=== PATIENT | female | born 1970 | race Caucasian/White ===

== ENCOUNTER 2019-12-13 20:36 | Emergency (ER) | payer OTHER, MEDICAID, SELFPAY ==
[2019-12-13] VITALS (8 sets, daily range): BP systolic 130–149; BP diastolic 91–92; PULSE 92–134; RESP 18–24; O2SAT 94–98
--- NOTE | 2019-12-13 21:18 | ED_ITS ---
HPI - General Adult General Chief complaint: Toxicology Problem Stated complaint: detoxing off benzo's Time Seen by Provider: 12/13/19 20:50 Source: patient Mode of arrival: Ambulatory Limitations: no limitations History of Present Illness HPI narrative: 48-year-old female here for evaluation and ?medical clearance? 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 Patient has had issues with drug and alcohol abuse in the past. Has been in alcoholics anonymous in the past. States was doing well until early this year when the COVID-19 situation caused the alcoholics anonymous groups to shut down. She states that she then started drinking alcohol. She was then prescribed Ativan by her primary provider. She states that it was a prescription for 60 1 mg Ativan pills with refills. She states she went through 60 of these pills in approximately 2 weeks. She then refill and the medicine and again took them rather quickly. She has been taking them with alcohol. Her last drink was earlier today. Her last Ativan tablet was also earlier today. She has never had alcohol withdrawal seizures. She denies any other drug use. Related Data Allergies Allergy/AdvReac Type Severity Reaction Status Date / Time Penicillins Allergy Verified 12/13/19 20:47 Sulfa (Sulfonamide Allergy Verified 12/13/19 20:47 Antibiotics) Review of Systems Constitutional Constitutional: Denies fever(s) and Denies headache(s) ENT Ears, Nose, Mouth, and Throat: Denies headache(s) Cardiovascular Cardiovascular: Denies chest pain and Denies dyspnea Respiratory Respiratory: Denies dyspnea Gastrointestinal Gastrointestinal: Denies abdominal pain, Denies nausea and Denies vomiting Musculoskeletal Musculoskeletal: Denies arthralgias and Denies myalgias Integumentary/Breasts Skin/Breast: Denies rash Neurologic Neurologic: Denies behavioral changes and Denies headache(s) Psychiatric Psychiatric: Reports anxiety and Denies behavioral changes Hematologic/Lymphatic Hematologic/Lymphatic: Denies easy bleeding and Denies easy bruising Allergic/Immunologic Allergic/Immunologic: Denies urticaria Patient History Medical History Alcohol abuse (Acute) Anxiety (Acute) Drug abuse (Acute) alcohol intake frequency: 3 or more drinks per day Substance Use Type: prescription drug Exam Initial Vital Signs Initial Vital Signs: Vital Signs Pulse Rate 134 H 12/13/19 20:42 Respiratory Rate 24 12/13/19 20:42 Blood Pressure 149/92 H 12/13/19 20:42 Pulse Oximetry 96 12/13/19 20:42 Const General: cooperative and comfortable Limitations: mental status not altered HENMT Head: normal to inspection and normocephalic Resp Effort & Inspection: normal respiratory effort Auscultation: clear to auscultation bilaterally Cardio Rate: tachycardic Rhythm: regular rhythm Pulses: radial pulses present GI Inspection: non-distended Palpation: soft Skin Lesions: no lesions Rashes: no rashes Neuro General: patient alert, patient awake and patient oriented x3 Cognition: normal cognition Speech: speech normal Extrem General: normal to inspection and capillary refill normal Psych Appearance: grossly normal and well kempt Speech and Movement: speech and movement normal Mood: congruent mood Affect: normal affect Attitude: cooperative Scores GCS Lampe coma scale eye opening: Spontaneous Ella coma scale verbal response: Orientated Lampe coma scale motor response: Obey commands Lampe coma scale total score: 15 Course Orders Ordered: ED Orders 12/13/19 20:54 Test Urine Stat Urinalysis and Microscopic Stat Urine Drug Screen, Rapid Stat 12/13/19 20:55 EKG-12 Lead Stat 12/13/19 21:00 Acetaminophen Stat Complete Blood Count AUTO DIFF Stat Comprehensive Metabolic Panel Stat Ethanol (ETOH) Stat Free T4, Direct Thyroxine Stat Lipase Stat Salicylate Stat Thyroid Stimulating Hormone Stat 12/13/19 21:30 COVID19 -ED/INPAT/OR/L&D Stat 12/14/19 00:35 [place] [facility] [place] Stat Sodium Chloride (Normal Saline 0.9%) 1,000 mls @ 1,000 mls/hr IV BOLUS ONE Stop: 12/14/19 03:38 Last Admin: 12/14/19 02:44 Dose: 1,000 mls/hr Documented by: SAMINA Vital Signs Vital signs: Vital Signs - 8 hr 12/13/19 20:42 12/13/19 22:00 12/13/19 22:01 Pulse Rate 134 H 113 H 104 H Respiratory Rate 24 18 Blood Pressure 149/92 H 131/91 H Pulse Oximetry 96 97 94 12/13/19 22:53 12/13/19 22:54 12/13/19 23:00 Pulse Rate 92 H 96 H 103 H Respiratory Rate Blood Pressure 142/92 H Pulse Oximetry 98 98 98 12/13/19 23:05 12/13/19 23:30 Pulse Rate 92 H 96 H Respiratory Rate 19 20 Blood Pressure 142/91 H 130/91 H Pulse Oximetry 98 97 Medical Decision Making Medical Records Medical records reviewed: Yes I reviewed the patient's medical records. Lab Data Lab results reviewed: Yes I reviewed the patient's lab results. Result diagrams: 12/13/19 21:00 12/13/19 21:00 Labs: Lab Results 12/13/19 12/13/19 12/13/19 Range/Units 20:54 20:54 20:54 WBC (4.5-11.0) X10^3/uL RBC (4.0-5.2) X10^6/uL Hgb (12.0-16.0) g/dL Hct (36-46) % MCV (80-100) fL MCH (26-34) PG MCHC (30-36) % RDW (11.6-14.8) % Plt Count (150-400) X10^3/uL Neut % (Auto) (50-75) % Lymph % (Auto) (25-40) % [place] % (Auto) (3-14) % Eos % (Auto) (2-4) % Baso % (Auto) (0-2) % Neut # (Auto) (3419-1853) /uL Lymph # (Auto) (8318-6753) /uL Richmond # (Auto) (0-900) /uL Eos # (Auto) (0-450) /uL Baso # (Auto) (0-100) /uL Sodium (137-145) mmol/L Potassium (3.4-5.1) mmol/L Chloride (98-107) mmol/L Carbon Dioxide (22-32) mmol/L BUN (7-17) mg/dL Creatinine (0.52-1.04) mg/dL Estimated GFR (>60) mL/min BUN/Creatinine Ratio (6-22) Glucose (70-100) mg/dL Calcium (8.4-10.2) mg/dL Total Bilirubin (0.2-1.3) mg/dL AST (14-36) IU/L ALT (<35) IU/L Alkaline Phosphatase (38-126) U/L Total Protein (6.3-8.2) g/dL Albumin (3.5-5.0) g/dL Globulin (1.7-4.1) g/dL Albumin/Globulin Ratio (1.0-2.8) Lipase (23-300) U/L TSH (0.47-4.68) uIU/mL Free T4 (0.78-2.19) ng/dL Urine Color Yellow Urine Appearance Clear Urine pH 7.0 (4.5-8.0) Ur Specific Aldrich <=1.005 (1.000-1.035) Urine Protein Negative (Negative) Urine Glucose (UA) Negative (Negative) g/dL Urine Ketones Negative (NEGATIVE) Urine Occult Blood 3+ H (Negative) Urine Nitrate Negative (Negative) Urine Bilirubin Negative (NEGATIVE) Urine Urobilinogen 0.2 (0.2) E.U./dL Ur Leukocyte Esterase Negative (NEGATIVE) Urine RBC None seen (0-5/HPF) Urine WBC None seen (0-5/HPF) Ur Squamous Epith Cells 1-5 /hpf (0-5/HPF) Urine Bacteria Occasional (0-1) (None) Ur Culture Indicated? Cult not indicated Urine Test Negative (Negative) Salicylates (<20) mg/dL U Opiates 300ng/mL cut Negative (Negative) Ur Oxycodone Screen Negative (Negative) Urine Methadone Screen Negative (Negative) Acetaminophen (10-30) ug/mL Ur Barbiturates Screen Negative (Negative) U Tricyclic Antidepress Negative (Negative) Ur Phencyclidine Scrn Negative (Negative) Ur Amphetamines Screen Negative (Negative) U Methamphetamines Scrn Positive H (Negative) Ur MDMA Scrn (Ecstasy) Negative (Negative) U Benzodiazepines Scrn Negative (Negative) Urine Cocaine Screen Negative (Negative) U Marijuana (THC) Screen Positive H (Negative) Ethyl Alcohol ( - 10) mg/dL COVID-19 PCR (Negative) 12/13/19 12/13/19 12/13/19 Range/Units 21:00 21:00 21:00 WBC 6.7 (4.5-11.0) X10^3/uL RBC 4.33 (4.0-5.2) X10^6/uL Hgb 12.7 (12.0-16.0) g/dL Hct 38.2 (36-46) % MCV 88.2 (80-100) fL MCH 29.3 (26-34) PG MCHC 33.3 (30-36) % RDW 14.6 (11.6-14.8) % Plt Count 320 (150-400) X10^3/uL Neut % (Auto) 70.3 (50-75) % Lymph % (Auto) 19.4 L (25-40) % Richmond % (Auto) 8.4 (3-14) % Eos % (Auto) 1.1 L (2-4) % Baso % (Auto) 0.8 (0-2) % Neut # (Auto) 4700 (6656-8987) /uL Lymph # (Auto) 1300 (5700-4679) /uL Richmond # (Auto) 600 (0-900) /uL Eos # (Auto) 100 (0-450) /uL Baso # (Auto) 100 (0-100) /uL Sodium 138 (137-145) mmol/L Potassium 3.6 (3.4-5.1) mmol/L Chloride 106 (98-107) mmol/L Carbon Dioxide 23 (22-32) mmol/L BUN 17 (7-17) mg/dL Creatinine 0.82 (0.52-1.04) mg/dL Estimated GFR > 60.0 (>60) mL/min BUN/Creatinine Ratio 20.7 (6-22) Glucose 108 H (70-100) mg/dL Calcium 9.3 (8.4-10.2) mg/dL Total Bilirubin 0.5 (0.2-1.3) mg/dL AST 33 (14-36) IU/L ALT 23 (<35) IU/L Alkaline Phosphatase 54 (38-126) U/L Total Protein 7.0 (6.3-8.2) g/dL Albumin 4.3 (3.5-5.0) g/dL Globulin 2.7 (1.7-4.1) g/dL Albumin/Globulin Ratio 1.6 (1.0-2.8) Lipase 116 (23-300) U/L TSH 0.908 (0.47-4.68) uIU/mL Free T4 0.91 (0.78-2.19) ng/dL Urine Color Urine Appearance Urine pH (4.5-8.0) Ur Specific Aldrich (1.000-1.035) Urine Protein (Negative) Urine Glucose (UA) (Negative) g/dL Urine Ketones (NEGATIVE) Urine Occult Blood (Negative) Urine Nitrate (Negative) Urine Bilirubin (NEGATIVE) Urine Urobilinogen (0.2) E.U./dL Ur Leukocyte Esterase (NEGATIVE) Urine RBC (0-5/HPF) Urine WBC (0-5/HPF) Ur Squamous Epith Cells (0-5/HPF) Urine Bacteria (None) Ur Culture Indicated? Urine Test (Negative) Salicylates < 1.0 (<20) mg/dL U Opiates 300ng/mL cut (Negative) Ur Oxycodone Screen (Negative) Urine Methadone Screen (Negative) Acetaminophen < 10 L (10-30) ug/mL Ur Barbiturates Screen (Negative) U Tricyclic Antidepress (Negative) Ur Phencyclidine Scrn (Negative) Ur Amphetamines Screen (Negative) U Methamphetamines Scrn (Negative) Ur MDMA Scrn (Ecstasy) (Negative) U Benzodiazepines Scrn (Negative) Urine Cocaine Screen (Negative) U Marijuana (THC) Screen (Negative) Ethyl Alcohol 69 H ( - 10) mg/dL COVID-19 PCR (Negative) 12/13/19 Range/Units 21:30 WBC (4.5-11.0) X10^3/uL RBC (4.0-5.2) X10^6/uL Hgb (12.0-16.0) g/dL Hct (36-46) % MCV (80-100) fL MCH (26-34) PG MCHC (30-36) % RDW (11.6-14.8) % Plt Count (150-400) X10^3/uL Neut % (Auto) (50-75) % Lymph % (Auto) (25-40) % Richmond % (Auto) (3-14) % Eos % (Auto) (2-4) % Baso % (Auto) (0-2) % Neut # (Auto) (3003-6275) /uL Lymph # (Auto) (6179-9484) /uL Richmond # (Auto) (0-900) /uL Eos # (Auto) (0-450) /uL Baso # (Auto) (0-100) /uL Sodium (137-145) mmol/L Potassium (3.4-5.1) mmol/L Chloride (98-107) mmol/L Carbon Dioxide (22-32) mmol/L BUN (7-17) mg/dL Creatinine (0.52-1.04) mg/dL Estimated GFR (>60) mL/min BUN/Creatinine Ratio (6-22) Glucose (70-100) mg/dL Calcium (8.4-10.2) mg/dL Total Bilirubin (0.2-1.3) mg/dL AST (14-36) IU/L ALT (<35) IU/L Alkaline Phosphatase (38-126) U/L Total Protein (6.3-8.2) g/dL Albumin (3.5-5.0) g/dL Globulin (1.7-4.1) g/dL Albumin/Globulin Ratio (1.0-2.8) Lipase (23-300) U/L TSH (0.47-4.68) uIU/mL Free T4 (0.78-2.19) ng/dL Urine Color Urine Appearance Urine pH (4.5-8.0) Ur Specific Aldrich (1.000-1.035) Urine Protein (Negative) Urine Glucose (UA) (Negative) g/dL Urine Ketones (NEGATIVE) Urine Occult Blood (Negative) Urine Nitrate (Negative) Urine Bilirubin (NEGATIVE) Urine Urobilinogen (0.2) E.U./dL Ur Leukocyte Esterase (NEGATIVE) Urine RBC (0-5/HPF) Urine WBC (0-5/HPF) Ur Squamous Epith Cells (0-5/HPF) Urine Bacteria (None) Ur Culture Indicated? Urine Test (Negative) Salicylates (<20) mg/dL U Opiates 300ng/mL cut (Negative) Ur Oxycodone Screen (Negative) Urine Methadone Screen (Negative) Acetaminophen (10-30) ug/mL Ur Barbiturates Screen (Negative) U Tricyclic Antidepress (Negative) Ur Phencyclidine Scrn (Negative) Ur Amphetamines Screen (Negative) U Methamphetamines Scrn (Negative) Ur MDMA Scrn (Ecstasy) (Negative) U Benzodiazepines Scrn (Negative) Urine Cocaine Screen (Negative) U Marijuana (THC) Screen (Negative) Ethyl Alcohol ( - 10) mg/dL COVID-19 PCR Negative (Negative) Point of Care Testing Test Results Negative Urine Dip Bedside Urine Glucose Negative Bedside Urine Bilirubin - Negative Bedside Urine Ketone - Negative Urine Specific Aldrich 1.010 Bedside Urine Occult Blood +++ Bedside Urine pH 7.0 Bedside Urine Protein - Negative Bedside Urine Urobilinogen - Negative Bedside Urine Nitrite - Negative Bedside Urine Leukocytes - Negative Esterase Point of care testing: Point of Care Testing Test Results Negative Urine Dip Bedside Urine Glucose Negative Bedside Urine Bilirubin - Negative Bedside Urine Ketone - Negative Urine Specific Aldrich 1.010 Bedside Urine Occult Blood +++ Bedside Urine pH 7.0 Bedside Urine Protein - Negative Bedside Urine Urobilinogen - Negative Bedside Urine Nitrite - Negative Bedside Urine Leukocytes - Negative Esterase ECG Data Attestation: I personally reviewed and interpreted this ECG as follows: Prior ECG tracings: not available for review Interpretation: Sinus tachycardia Ventricular rate 120 Normal axis Normal QRS Normal QTC No ST T wave changes MDM Narrative Medical decision making narrative: Patient arrived tachycardic however this improved with time here in the ER. Patient is medically cleared. Her urinalysis is positive for amphetamines and THC. Alcohol level upon arrival less than the legal limit. During her time in the emergency department she had no signs of overt alcohol/benzodiazepine withdrawal. Attempted to contact multiple places however we were unable to secure a detox bed secondary to mult iple reasons to include patient's insurance, lack of availability, and the fact that patient has alcohol and benzodiazepine issues and not just alcohol issues. Had a discussion with the patient regarding her options. Plan will be is to keep her in the emergency department and have social work come see her in the morning to discuss disposition. Care turned over to Dr. Myles at 0700 to follow-up.
[2019-12-13 21:19] LABS: Add Manual Diff / Slide Review NO; Basophils Absolute Auto 100 /uL (0-100); Basophils Percent Auto 0.8 % (0-2); Eosinophils Absolute Auto 100 /uL (0-450); Eosinophils Percent Auto 1.1 % (2-4); Hematocrit 38.2 % (36-46); Hemoglobin 12.7 g/dL (12.0-16.0); Lymphocytes Absolute Auto 1300 /uL (1100-4500); Lymphocytes Percent Auto 19.4 % (25-40); Mean Corpuscular HGB Conc 33.3 % (30-36); Mean Corpuscular Hemoglobin 29.3 PG (26-34); Mean Corpuscular Volume 88.2 fL (80-100); Monocytes Absolute Auto 600 /uL (0-900); Monocytes Percent Auto 8.4 % (3-14); Neutrophils Absolute Auto 4700 /uL (1500-7000); Neutrophils Percent Auto 70.3 % (50-75); Platelet Count 320 X10^3/uL (150-400); Red Blood Cell Count 4.33 X10^6/uL (4.0-5.2); Red Cell Distribution Width 14.6 % (11.6-14.8); White Blood Cell Count 6.7 X10^3/uL (4.5-11.0)
[2019-12-13 21:26] LABS: RBC Urine None Seen (0-5/HPF); WBC Urine None Seen (0-5/HPF)
[2019-12-13 21:28] LABS: Pregnancy Test Urine Negative (Negative); UR Morphine/Opiate cutoff 300 Negative (Negative); Urine Amphetamines Negative (Negative); Urine Barbiturates Negative (Negative); Urine Benzodiazepines Negative (Negative); Urine Cocaine Negative (Negative); Urine MDMA Negative (Negative); Urine Methadone Negative (Negative); Urine Oxycodone Negative (Negative); Urine Phencyclidine Negative (Negative); Urine Tricyclic Antidepressant Negative (Negative)
[2019-12-13 21:29] LABS: Appearance Urine UA CLEAR; Bilirubin Urine UA NEGATIVE (NEGATIVE); Color Urine UA YELLOW; Glucose Urine UA NEGATIVE (Negative); Ketones Urine UA NEGATIVE (NEGATIVE); Leukocyte Esterase Urine UA NEGATIVE (NEGATIVE); Nitrite Urine UA NEGATIVE (Negative); Protein Urine UA NEGATIVE (Negative); Urobilinogen Urine UA 0.2 E.U./dL (0.2)
[2019-12-13 21:31] LABS: Acetaminophen < 10 ug/mL (10-30); Alanine Aminotransferase 23 IU/L (<35); Albumin 4.3 g/dL (3.5-5.0); Albumin Globulin Ratio 1.6 (1.0-2.8); Alkaline Phosphatase 54 U/L (38-126); Aspartate Aminotransferase 33 IU/L (14-36); BUN Creatinine Ratio 20.7 (6-22); Bilirubin Total 0.5 mg/dL (0.2-1.3); Blood Urea Nitrogen 17 mg/dL (7-17); Calcium 9.3 mg/dL (8.4-10.2); Carbon Dioxide 23 mmol/L (22-32); Chloride 106 mmol/L (98-107); Estimated Glomerular Filt Rate > 60.0 mL/min (>60); Ethanol (ETOH) 69 mg/dL; Globulin 2.7 g/dL (1.7-4.1); Glucose 108 mg/dL (70-100); HEMOLYSIS < 15 (0-50); Lipase 116 U/L (23-300); Potassium 3.6 mmol/L (3.4-5.1); Salicylate < 1.0 mg/dL (<20); Sodium 138 mmol/L (137-145)
[2019-12-13 21:53] LABS: Occult Blood Urine UA 3+ (Negative); Specific Gravity Urine UA <=1.005 (1.000-1.035)
[2019-12-13 21:54] LABS: Ur Creatinine Normal (Normal); Ur Specific Gravity Normal (Normal); Urine pH Normal (Normal)
[2019-12-13 21:55] LABS: Urine Tetrahydrocannabinol Positive (Negative)
[2019-12-13 21:56] LABS: Urine Methamphetamines Positive (Negative)
[2019-12-13 21:57] LABS: Bacteria Urine Occasional (0-1); Culture Indicated Urine Cult Not Indicated; Squamous Epithelial Cell Urine 1-5 /HPF (0-5/HPF)
[2019-12-13 22:04] LABS: Free T4, Direct Thyroxine 0.91 ng/dL (0.78-2.19)
[2019-12-13 22:08] LABS: Thyroid Stimulating Hormone 0.908 uIU/mL (0.47-4.68)
[2019-12-13 22:44] LABS: COVID19 -Nasal RAPID Negative (Negative)
--- NOTE | 2019-12-13 23:28 | PC.NURSE ---
Pt states that when she runs out of her benzos she becomes depressed and suicidal. Pt had 1 mg ativan at 1200 and 1mg at 1600 with alcohol. Pt states she has 12 left in her car and is afraid of running out because of how she feels when she stops. Pt would like to stop taking benzos and ETOH all together. Has difficulty using zoom for AA and there is no in person meetings right now. Pt is AO and cooperative.
[2019-12-14] VITALS (26 sets, daily range): BP systolic 109–139; BP diastolic 57–95; PULSE 48–100; RESP 13–24; O2SAT 85–99
[2019-12-14] MEDS: SODIUM CHLORIDE 0.9% 1,000 ML 1000 ML IV (02:44)
--- NOTE | 2019-12-14 12:58 | CM.SWNOTE ---
FBI SPECIAL AGENT assessment FBI SPECIAL AGENT - Ornamental Metalwork Designer Assessment FBI SPECIAL AGENT - Ornamental Metalwork Designer Assessment Start: 12/14/19 12:35 Martyq: Status: Active Protocol: Document 12/14/19 12:35 DUANE (Rec: 12/14/19 12:58 DUANE [id number]) FBI SPECIAL AGENT/Ornamental Metalwork Designer Assessment Time Spent with Patient Start date 12/14/19 Visit Start Time 12:00 End date 12/14/19 Visit End Time 12:30 Total time Care Management spent on 30 patient visit-in minutes Substance Abuse Screening Include Onset, Duration, Intensity Presenting Problem Patient presents to ED previous evening requesting assistance detoxing off of benzodiazapines and alcohol. Patient reports being given a prescription of Ativan due to panic attacks and reports she finished the prescription of 60 pills within two weeks. Patient reports. Precipitating Event(s) Patient reports significant history of trauma and transition over past 5 years. Patient was 5 years ago, and states that past 5 years have been worst 5 years of my life. Patient reports she loves her boyfriend, but states he' s an addict and we feed off of eachother. Patient lives with her boyfriend and states that they have been in recovery for roughly 1 year. Patient Strengths Patient presents as very aware of her addiction, is motivated and realistic about recovery. 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 Patient has struggled with addiction before and maintained sobriety . Current Behavioral Health Provider(s) Patient sees a PCP, but does Include Facility, Provider, Ph. # not have a behavioral health team in place. Family Hx of Behavioral Abuse None reported. Rehab Facilities? ((Date(s), Location(s) None reported. ) History of Withdrawal? Seizures? Patient discusses concern for seizure due to detox on combo of alcohol and benzos, but states that withdrawal symptoms of tremors and anxiety are common for her. Longest Period of Sobriety 2 years; 2010-02 Psychosocial information & Support Patient is a 48 y/o female who Systems lives with her boyfriend in [place]. Patient currently works on a farm, but has significant work experience in a s[employer] of [employer]. Patient reports having support from her parents and partner, though notes that her partner and her often escalate eachother's addictions. School/Work Patient currently works on a farm. Legal Concerns Legal Matters - Outstanding Issues None reported. Mental Status Orientation (Person/Place/Time) Oriented x3 Stated Mood ok Affect (Congruent with Mood?) Dysphoric, slightly flat, stable, congruent with mood Thought Content - Specify/Describe No hallucinations or Obsessions, Delusions, Hallucinations obsessions observed or reported. Patient reports experiencing some paranoia, but states this is specific to her boyfriend's sobriety. Thought Processes (Ovwtwpj-Sgaufsps-Dubf Circumstantial/detailed Ugrznorb-Bbjmcbjj-Cokzdqhgsj- Hcqashqlmoqyiw-Vxtysdt-Yrwqenzahgxn- Thought Blocking) Speech (Gcmdir-Hffu-Wwruvks-Rapid-Soft- Normal Loud-Pressured) Motor (Jdkdrl-Hpchgnvwh-Lbzq-Other) Normal Insight (Ecsl-Nceh-Ofjf/Limited) Good Judgement (Kiub-Cxaq-Uzwl/Limited) Good-Fair Impulse Control (Adequate-Impaired) Adequate Memory (Uveyisazv-Svyjzo-Xhrfdc, Intact x3 Impaired-Intact) Concentration (Intact-Impaired) Slight impairment Attention (Intact-Impaired) Intact Behavior (Appropriate-Inappropriate) Appropriate. Risk Assessment Suicidal Ideation (Plan) No Homicidal Ideation (Plan) No Comment Patient denies SI/HI. Intervention Intervention FBI SPECIAL AGENT meets with patient. FBI SPECIAL AGENT and patient review patient's presentation to ED and discuss options. FBI SPECIAL AGENT and patient discuss AA and patient reports a plan to move to [place] in 1 month to live around her parents for 3 months to get clean and offers that she will engage in outpatient treatment while there. Patient reports she is motivated to get clean and a desire to improve her physical health. FBI SPECIAL AGENT provides patient with a list of in-person meetings and offers statement of hopefulness for patient's recovery. Plan RA Plan Patient to d/c to home and will engage in outpatient treatment. KAMRON Morgan
== END 2019-12-14 12:50 | disposition home or self-care (01) ==
PROVIDERS: Emergency Provider Emergency Medicine
DX: F10.10 Alcohol abuse, uncomplicated (principal); F13.20 Sedative, hypnotic or anxiolytic dependence, uncomplicated
CPT/HCPCS: 36415; 80053; 80305; 80320; 80329; 81001; 81003; 81025; 83690; 84439; 84443; 85025; 87635; 93005; 96360; 99284; G0480

== ENCOUNTER 2020-06-15 13:15 | Emergency (ER) | payer OTHER, MEDICAID, SELFPAY ==
[2020-06-15 13:36] VITALS: BP 130/87; PULSE 68; RESP 14; TEMP 36.7; O2SAT 99; BMI 25.0
[2020-06-15 13:56] VITALS: PULSE 75; O2SAT 97
[2020-06-15 14:00] VITALS: BP 113/82; PULSE 73; O2SAT 97
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
[2020-06-15 14:30] VITALS: BP 118/82; PULSE 69; O2SAT 98
[2020-06-15] MEDS: IBUPROFEN 400 MG TABLET 800 MG PO (14:46)
== END 2020-06-15 15:01 | disposition home or self-care (01) ==
PROVIDERS: Emergency Provider Emergency Medicine
DX: Z91.09 Other allergy status, other than to drugs and biological substances (principal)
CPT/HCPCS: 99283